=== PATIENT | female | born 1985 | race Two or more races ===

== ENCOUNTER 2020-11-20 05:33 | Emergency (ER) | payer SELFPAY ==
[~2020-11-20] VITALS: Ht 152.4 cm; Wt 81.8 kg
--- NOTE | 2020-11-20 06:34 | RAD ---
AP chest x-ray HISTORY: Shortness of breath. FINDINGS: Heart size normal. Mediastinal silhouette is normal. No pneumothorax, pulmonary opacities o r pleural effusions. Bones are unremarkable. IMPRESSION: No acute process evident. Electronically signed by: Luis Saini MD (11/20/2020 6:31 AM) [facility]erek
[2020-11-20] MEDS ORDERED: PROCHLORPERAZINE 10 MG/2 ML VIAL. IV ONE (06:45)
[2020-11-20] MEDS ORDERED: IV NORMAL SALINE 1000ML BAG 1,000 ML IV ONE (06:45)
[2020-11-20] MEDS ORDERED: DEXAMETHASONE SOD PHOS 20 MG/5 ML VIAL. IV ONE (06:45)
[2020-11-20 06:58] LABS: BASO # 0.1 x10^3/uL (0.0-0.2); BASO % 1 % (0-3); EOS # 0.2 x10^3/uL (0.0-0.7); EOS % 2 % (0-3); HEMATOCRIT 39.4 % (36.0-47.0); HEMOGLOBIN 13.3 g/dL (12.0-15.5); LYMPH # 2.3 x10^3/uL (1.0-4.8); LYMPH % 36 % (24-48); MEAN CORPUSCULAR HEMOGLOBIN 30 pg (25-35); MEAN CORPUSCULAR HGB CONC 34 g/dL (31-37); MEAN CORPUSCULAR VOLUME 88 fL (79-100); MONO # 0.4 x10^3/uL (0.0-1.1); MONO % 7 % (0-9); NEUT # 3.4 x10^3/uL (1.8-7.7); NEUT % 53 % (31-73); PLATELET COUNT 266 x10^3/uL (140-400); RED BLOOD COUNT 4.46 x10^6/uL (3.50-5.40); RED CELL DISTRIBUTION WIDTH 13.3 % (11.5-14.5); WHITE BLOOD COUNT 6.3 x10^3/uL (4.0-11.0)
--- NOTE | 2020-11-20 06:59 | PHYS DOC ---
Past Medical History Smoking Status: Never Smoker Alcohol Use: Occasionally General Adult EDM: Chief Complaint: SHORTNESS OF BREATH HPI: HPI: 35-year-old female past medical history of hypertension, hyperlipidemia and anxiety, presents the ED with complaints of gradual, intermittent headaches for the past 3 days reporting her anxiety is increased, she has not slept in the pa st 3 days. Reports her heart beat is going fast and she has had intermittent vomiting. Takes gabapentin and sertraline for anxiety, not on any anticoagulants. No history of migraine headaches or blunt head trauma. Was vaccinated for Covid 3 months ago. 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 Review of Systems: Review of Systems: Constitutional: Denies fever or chills. [] Eyes: Denies change in visual acuity. [] HENT: Denies nasal congestion or sore throat. [] Respiratory: Denies cough or shortness of breath. [] Cardiovascular: Denies chest pain or edema. [] GI: Denies abdominal pain, nausea, bloody stools or diarrhea. [] : Denies dysuria or hematuria Musculoskeletal: Denies back pain or joint pain. [] Integument: Denies rash or diaphoresis Neurologic: Denies neck stiffness focal weakness or sensory changes. [] Endocrine: Denies polyuria or polydipsia. [] Lymphatic: Denies swollen glands. [] Psychiatric: Denies depression or anxiety. [] Heart Score: C/O Chest Pain: No Risk Factors: Risk Factors: DM, Current or recent (<one month) smoker, HTN, HLP, family history of CAD, obesity. Risk Scores: Score 0 - 3: 2.5% MACE over next 6 weeks - Discharge Home Score 4 - 6: 20.3% MACE over next 6 weeks - Admit for Clinical Observation Score 7 - 10: 72.7% MACE over next 6 weeks - Early Invasive Strategies Current Medications: Current Medications Medications (Trade) Dose Ordered Sig/Aaron Start Time Stop Time Status Last Admin Dose Admin Dexamethasone Sodium Phosphate (Decadron) 10 mg 1X ONCE 11/20/20 06:45 11/20/20 06:46 DC Lorazepam (Ativan Inj) 1 mg 1X ONCE 11/20/20 06:45 11/20/20 06:46 DC Prochlorperazine Edisylate (Compazine) 10 mg 1X ONCE 11/20/20 06:45 11/20/20 06:46 DC Sodium Chloride 1,000 ml @ 1,000 mls/hr 1X ONCE 11/20/20 06:45 11/20/20 07:44 Allergies: Allergies: Allergies Coded Allergies Type Severity Reaction Last Updated Verified No Known Drug Allergies 10/31/15 No Physical Exam: PE: Constitutional: Photophobia present/squints with eye exam, non-toxic appearance. HENT: Normocephalic, atraumatic, no pharyngeal erythema Eyes: PERRLA, EOMI, conjunctiva normal, no discharge. Neck: Normal range of motion, supple, no nuchal rigidity or meningismus Cardiovascular: S1/2 present, regular rhythm, hr 97 on monitor Lungs & Thorax: Speaking in full sentences, bilateral equal chest rise, no tachypnea or increased work of breathing Abdomen: soft, no tenderness, Skin: Warm, dry, no erythema, no rash. [] Back: No tenderness, no CVA tenderness. [] Extremities: No tenderness, no cyanosis, Neurologic: CN2-12 [id number], steady gait, Alert and oriented X 3, normal motor function, normal sensory function, no focal deficits noted. [] Psychologic: Affect normal, judgement normal, mood-very anxious EKG: EKG: Sinus tachycardia 111 bpm, no axis deviation, S1Q3T3 present, QTC 510, no ST elevations or ST depressions Radiology/Procedures: Radiology/Procedures: IMAGING REPORT Signed PATIENT: KECIA CRUZ ACCOUNT: [id number] : 1985 LOCATION: ER AGE: 35 SEX: F EXAM STATUS: REG ER ORD. PHYSICIAN: DORIAN WILCOX DO REASON: headache PROCEDURE: CT HEAD WO CONTRAST EXAMINATION: CT HEAD/BRAIN WO CLINICAL HISTORY: Headache TECHNIQUE: Serial axial images without IV contrast were obtained from the vertex to the foramen magnum. CT Dose Reduction Employed: One or more of the following individualized dose reduction techniques were utilized for this examination: 1. Automated exposure control 2. Adjustment of the mA and/or kV according to patient size 3. Use of iterative reconstruction technique. COMPARISON: None FINDINGS: Acute Change: No evidence of an acute infarct or other acute parenchymal process. Hemorrhage: No evidence of acute intracranial hemorrhage. Mass Lesion/Mass Effect: No evidence of intracranial mass or extraaxial fluid collection. No significant mass effect. Parenchyma: No significant volume loss. Parenchyma otherwise within normal limits for age. Ventricles: Ventricles within normal limits for age. Paranasal Sinuses and Skull Base: Visualized paranasal sinuses clear. Visualized skull base and soft tissues unremarkable. IMPRESSION: No evidence of acute intracranial abnormality. Electronically signed by: Jak Samayoa DO (11/20/2020 8:17 AM) [id number] DICTATED and SIGNED BY: JAK SAMAYOA DO DATE: 11/20/20 [id number] IMAGING REPORT Signed PATIENT: KECIA CRUZ ACCOUNT: [id number] : 1985 LOCATION: ER AGE: 35 SEX: F EXAM STATUS: REG ER ORD. PHYSICIAN: DORIAN WILCOX DO REASON: soa PROCEDURE: CHEST AP ONLY AP chest x-ray HISTORY: Shortness of breath. FINDINGS: Heart size normal. Mediastinal silhouette is normal. No pneumothorax, pulmonary opacities or pleural effusions. Bones are unremarkable. IMPRESSION: No acute process evident. Electronically signed by: Eladio Saini MD (11/20/2020 6:31 AM) [facility] DICTATED and SIGNED BY: ELADIO SAINI MD DATE: 11/20/20 [id number] IMAGING REPORT Signed PATIENT: KECIA CRUZ ACCOUNT: [id number] : 1985 LOCATION: ER AGE: 35 SEX: F EXAM STATUS: REG ER ORD. PHYSICIAN: DORIAN WILCOX DO REASON: palpitaitons, r/o pe PROCEDURE: CT ANGIOGRAPHY CHEST PQRS Compliance Statement: One or more of the following individualized dose reduction techniques were utilized for this examination: 1. Automated exposure control 2. Adjustment of the mA and/or kV according to patient size 3. Use of iterative reconstruction technique Exam performed: CT pulmonary angiogram of the chest with contrast. Date: 11/20/2020. Comparison:Single view chest from earlier today Indication: Palpitation Technique: Contiguous helical acquisitions are obtained through the chest during intravenous administration of [ 100 ] cc of [ Omnipaque 3 ] . [Sagittal and coronal reformatted images and ] MIP images were obtained and reviewed Findings: Diagnostic quality: Adequate.. Pulmonary emboli: None seen Right heart strain: None Pulmonary arteries: Normal in caliber Heart/Systemic Vasculature: Normal Mediastinum: Normal Lungs: Clear Neck/Axilla/Body Wall: Normal Upper Abdomen: Unremarkable Bones: Normal Miscellaneous: None Impression: 1. Study is negative for pulmonary embolism. No additional abnormality seen. Electronically signed by: Pamela Gunn MD (11/20/2020 10:35 AM) [id number] DICTATED and SIGNED BY: PAMELA GUNN MD DATE: 11/20/20 [id number] Course & Med Decision Making: Course & Med Decision Making Pertinent Labs and Imaging studies reviewed. (See chart for details) Patient presented to the ED with multiple complaints including a gradual onset, intermittent headache for the past 3 days with associated anxiety, shortness of breath, palpitations and decreased sleep. Headache and anxiety improved with migraine cocktail and Ativan. I do suspect patient symptoms are more likely related to anxiety and stress >> life-threatening etiologies of headache. Heada georgette is atraumatic and intermittent. Patient is well-appearing with normal neurologic exam. Will discharge home with strict ED return precautions were given for head injury, severe headache, nausea or vomiting, neurologic deficits or suicidal homicidal ideations. Encouraged urgent outpatient follow-up with PMD and psychiatry. Life-threatening processes were considered but are low suspicion at this time, given history, physical exam and ED workup. Pt was educated on all prescription medications and adverse effects. All patient's questions were answered and pt was stable at time of discharge. Life/limb-threatening differential includes but is not limited to, end organ damage/sepsis, trauma/abuse/neglect, neurologic deficit, alcohol/drug ingestion, toxidrome, suicidal/homicidal ideations plans or attempts, psychosis or mental illness resulting in self neglect and inability to care for self. I have spoken with the patient and/or caregivers. I explained the patient's condition, diagnoses and treatment plan based on the information available to me at this time. I have answered the patient and/or caregiver's questions and addressed any concerns. The patient and/or caregivers have a good understanding of patient's diagnosis, condition and treatment plan as can be expected at this point. Vital signs have been stable. Patient's condition is stable and appropriate for discharge from the emergency department. Patient will pursue further outpatient evaluation with primary care physician or other designated or consulting physician as outlined in the discharge instructions. The patient and/or caregivers are agreeable to this plan of care and follow-up instructions have been explained in detail. The patient and/or caregivers have received these instructions in written form and have expressed an understanding of the discharge instructions. The patient and/or caregivers are aware that any significant change of condition or worsening of symptoms should prompt immediate return to this or the closest emergency department or call to 911. Dragsteffany Disclaimer: Dragon Disclaimer: This electronic medical record was generated, in whole or in part, using a voice recognition dictation system. Departure Departure Impression: Primary Impression: Headache Additional Impressions: Anxiety Palpitations Disposition: HOME / SELF CARE / HOMELESS Condition: STABLE Referrals: NO PCP (PCP) Lisette un seguimiento con avendano mdico de atencin primaria en 24 a 48 horas O SEGUIMIENTO CON MEDICINA FAMILIAR: [address] [facility] [place] [address] Telfono: Patient Instructions: Anxiety and Panic Attacks, General Headache Without Cause, Palpitations Additional Instructions: SEGUIMIENTO CON PSIQUIATRA: PARA EL TRATAMIENTO DEFINITIVO de la ansiedad Dr. Ed Har[facility] [address] [place], [place] [address] Telfono: DORIAN WILCOX DO Nov 20, 2020 06:59
[2020-11-20 07:07] LABS: CALCIUM 9.3 mg/dL (8.5-10.1); CREATININE 0.7 mg/dL (0.6-1.0); GFR 95.2
[2020-11-20 07:15] LABS: ALBUMIN 4.2 g/dL (3.4-5.0); ALBUMIN/GLOBULIN RATIO 1.1 (1.0-1.7); TOTAL BILIRUBIN 0.4 mg/dL (0.2-1.0); TOTAL PROTEIN 8.1 g/dL (6.4-8.2)
[2020-11-20 07:33] LABS: PREG TEST PT QUAL NEGATIVE (NEG)
--- NOTE | 2020-11-20 08:19 | RAD ---
EXAMINATION: CT HEAD/BRAIN WO CLINICAL HISTORY: Headache TECHNIQUE: Serial axial images without IV contrast were obtained from the vertex to the foramen magnu m. CT Dose Reduction Employed: One or more of the following individualized dose reduction techniques wer e utilized for this examination: 1. Automated exposure control 2. Adjustment of the mA and/or kV ac cording to patient size 3. Use of iterative reconstruction technique. COMPARISON: None FINDINGS: Acute Change: No evidence of an acute infarct or other acute parenchymal process. Hemorrhage: No evidence of acute intracranial hemorrhage. Mass Lesion/Mass Effect: No evidence of intracranial mass or extraaxial fluid collection. No signific ant mass effect. Parenchyma: No significant volume loss. Parenchyma otherwise within normal limits for age. Ventricles: Ventricles within normal limits for age. Paranasal Sinuses and Skull Base: Visualized paranasal sinuses clear. Visualized skull base and soft tissues unremarkable. IMPRESSION: No evidence of acute intracranial abnormality. Electronically signed by: Jak Coronado DO (11/20/2020 8:17 AM) [id number]
[2020-11-20] MEDS ORDERED: diphenhydrAMINE 50 MG/ML VIAL IVP ONE (09:30)
[2020-11-20] MEDS ORDERED: IOHEXOL 350 MG/ML 100 ML VIAL. IV ONE (09:30)
[2020-11-20] MEDS ORDERED: CONTRAST GIVEN. MC PRN (09:30)
--- NOTE | 2020-11-20 10:37 | RAD ---
PQRS Compliance Statement: One or more of the following individualized dose reduction techniques were utilized for this examinat ion: 1. Automated exposure control 2. Adjustment of the mA and/or kV according to patient size 3. Use of iterative reconstruction technique Exam performed: CT pulmonary angiogram of the chest with contrast. Date: 11/20/2020. Comparison:Single view chest from earlier today Indication: Palpitation Technique: Contiguous helical acquisitions are obtained through the chest during intravenous administ ration of [ 100 ] cc of [ Omnipaque 3 ] . [Sagittal and coronal reformatted images and ] MIP nataly ges were obtained and reviewed Findings: Diagnostic quality: Adequate.. Pulmonary emboli: None seen Right heart strain: None Pulmonary arteries: Normal in caliber Heart/Systemic Vasculature: Normal Mediastinum: Normal Lungs: Clear Neck/Axilla/Body Wall: Normal Upper Abdomen: Unremarkable Bones: Normal Miscellaneous: None Impression: 1. Study is negative for pulmonary embolism. No additional abnormality seen. Electronically signed by: Pamela Gunn MD (11/20/2020 10:35 AM) [id number]
[2020-11-20] MEDS ORDERED: METOCLOPRAMIDE HCL 10 MG/2 ML VIAL. IVP ONE (13:45)
[2020-11-20] MEDS ORDERED: KETOROLAC 15 MG/ML VIAL. IVP ONE (13:45)
--- NOTE | 2020-11-20 14:11 | EKG ---
[facility] [address] [place] [address] Test Date: 2020-11-20 Test Time: 07:50:43 Pat Name: KECIA CRUZ Department: Room: Gender: F Clinical Aide: : 1985 Requested By: DORIAN WILCOX Order Number: [id number] Reading MD: Measurements Intervals [place] Rate: 111 P: -90 IL: 134 QRS: 26 QRSD: 82 T: 11 QT: 372 QTc: 510 Interpretive Statements SINUS TACHYCARDIA NON SPECIFIC T ABNORMALITY BORDERLINE ECG RI6.02 No previous ECG available for comparison
[2020-11-20 14:26] VITALS: BP 164/86
== END 2020-11-20 14:26 | disposition home or self-care (01) ==
LOC: ER 05:33
DX: R51.9 Headache, unspecified (principal); F41.9 Anxiety disorder, unspecified; R00.2 Palpitations; I10 Essential (primary) hypertension; E78.5 Hyperlipidemia, unspecified
CPT/HCPCS: 36415; 70450; 71045; 71275; 80053; 81025; 83735; 84484; 84703; 85025; 93005; 96361; 96374; 96375; 99285; J0780; J1100; J1200; J1885; J2060; J2765; J7030; Q9967

== ENCOUNTER 2021-06-22 05:56 | Emergency (ER) | payer SELFPAY ==
[~2021-06-22] VITALS: Ht 154.9 cm; Wt 65.7 kg
[2021-06-22] MEDS ORDERED: IOHEXOL 300 MG/ML 100ML VIAL. IV ONE (06:30)
[2021-06-22] MEDS ORDERED: MORPHINE SULFATE 4 MG/ML INJ. IVP ONE (06:30)
[2021-06-22] MEDS ORDERED: CONTRAST GIVEN. MC PRN (06:30)
[2021-06-22] MEDS ORDERED: ONDANSETRON PF 4 MG/2 ML VIAL. IVP ONE (06:30)
[2021-06-22] MEDS ORDERED: IV NORMAL SALINE 1000ML BAG 1,000 ML IV ONE (06:30)
[2021-06-22 06:39] LABS: BASO # 0.1 x10^3/uL (0.0-0.2); BASO % 1 % (0-3); EOS # 0.3 x10^3/uL (0.0-0.7); EOS % 3 % (0-3); HEMATOCRIT 36.1 % (36.0-47.0); HEMOGLOBIN 11.9 g/dL (12.0-15.5); LYMPH % 22 % (24-48); MEAN CORPUSCULAR HEMOGLOBIN 29 pg (25-35); MEAN CORPUSCULAR HGB CONC 33 g/dL (31-37); MEAN CORPUSCULAR VOLUME 90 fL (79-100); MONO # 0.7 x10^3/uL (0.0-1.1); MONO % 8 % (0-9); NEUT # 6.1 x10^3/uL (1.8-7.7); NEUT % 67 % (31-73); PLATELET COUNT 268 x10^3/uL (140-400); RED BLOOD COUNT 4.03 x10^6/uL (3.50-5.40); WHITE BLOOD COUNT 9.1 x10^3/uL (4.0-11.0)
--- NOTE | 2021-06-22 06:41 | PHYS DOC ---
Past Medical History Additional Past Medical Histor: NOT MEDICATED FOR HTN Past Surgical History: No Surgical History Additional Past Surgical Histo: C SECT Smoking Status: Never Smoker Alcohol Use: None Adult General Chief Complaint Chief Complaint: BACK INJURY HPI HPI Patient is a 36 year old female who presents with generalized abdominal pain that started last night. This is crampy in nature. She also has some discomfort with urination and an increase in urinary frequency. No vomiting. It is unclear whether she has had a fever at home. Review of Systems Review of Systems Constitutional: Potential fever, positive for chills Eyes: Denies change in visual acuity or eye pain HENT: Denies sore throat Respiratory: Denies shortness of breath Cardiovascular: Denies chest pain GI: Reports abd pain : Reports dysuria Musculoskeletal: Denies back or extremity injury Integument: Denies rash or skin lesions Neurologic: Denies headache, focal weakness or sensory changes All other systems were reviewed and found to be within normal limits, except as documented in this note. Current Medications Current Medications Current Medications Medications (Trade) Dose Ordered Sig/Aaron Start Time Stop Time Status Last Admin Dose Admin Info (CONTRAST GIVEN -- Rx MONITORING) 1 each PRN DAILY PRN 06/22/21 06:30 06/24/21 06:29 Iohexol (Omnipaque 300 Mg/ml) 75 ml 1X ONCE 06/22/21 06:30 06/22/21 06:31 DC 06/22/21 06:30 75 ML Morphine Sulfate (Morphine Sulfate) 4 mg 1X ONCE 06/22/21 06:30 06/22/21 06:31 DC 06/22/21 06:30 4 MG Ondansetron HCl (Zofran) 4 mg 1X ONCE 06/22/21 06:30 06/22/21 06:31 DC 06/22/21 06:30 4 MG Sodium Chloride 1,000 ml @ 1,000 mls/hr 1X ONCE 06/22/21 06:30 06/22/21 07:29 DC 06/22/21 06:30 1,000 MLS/HR Allergies Allergies Allergies Coded Allergies Type Severity Reaction Last Updated Verified No Known Drug Allergies 06/22/21 No Physical Exam Physical Exam Constitutional: Well developed, well nourished, no acute distress, non-toxic appearance. HENT: Normocephalic, atraumatic, bilateral external ears normal, mucosa moist, nose normal. Eyes: EOMI, conjunctiva normal, no discharge. Neck: Normal range of motion, supple, no stridor, no meningeal signs. Cardiovascular: Regular rate and rhythm Lungs & Thorax: Bilateral breath sounds clear to auscultation Abdomen: Soft, generalized tenderness, no obvious masses Skin: Warm, dry, no erythema, no rash. Extremities: No tenderness, no cyanosis, no clubbing, ROM intact, no edema. Neurologic: Alert and oriented, normal motor function, normal sensory function, no focal deficits noted. Psychologic: Affect normal, judgement normal, mood normal. Current Patient Data Vital Signs Vital Signs Date Time Temp Pulse Resp B/P (MAP) Pulse Ox O2 Delivery O2 Flow Rate FiO2 06/22/21 08:26 84 18 110/61 (77) 98 Room Air 06/22/21 07:24 97.9 97.9 Lab Values Laboratory Tests Test 06/22/21 06:29 06/22/21 07:19 06/22/21 07:22 06/22/21 07:28 White Blood Count 9.1 x10^3/uL (4.0-11.0) Red Blood Count 4.03 x10^6/uL (3.50-5.40) Hemoglobin 11.9 g/dL (12.0-15.5) L Hematocrit 36.1 % (36.0-47.0) Mean Corpuscular Volume 90 fL (79-100) Mean Corpuscular Hemoglobin 29 pg (25-35) Mean Corpuscular Hemoglobin Concent 33 g/dL (31-37) Red Cell Distribution Width 14.0 % (11.5-14.5) Platelet Count 268 x10^3/uL (140-400) Neutrophils (%) (Auto) 67 % (31-73) Lymphocytes (%) (Auto) 22 % (24-48) L Monocytes (%) (Auto) 8 % (0-9) Eosinophils (%) (Auto) 3 % (0-3) Basophils (%) (Auto) 1 % (0-3) Neutrophils # (Auto) 6.1 x10^3/uL (1.8-7.7) Lymphocytes # (Auto) 2.0 x10^3/uL (1.0-4.8) Monocytes # (Auto) 0.7 x10^3/uL (0.0-1.1) Eosinophils # (Auto) 0.3 x10^3/uL (0.0-0.7) Basophils # (Auto) 0.1 x10^3/uL (0.0-0.2) Sodium Level 136 mmol/L (136-145) Potassium Level 3.3 mmol/L (3.5-5.1) L Chloride Level 100 mmol/L (98-107) Carbon Dioxide Level 27 mmol/L (21-32) Anion Gap 9 (6-14) Blood Urea Nitrogen 5 mg/dL (7-20) L Creatinine 0.8 mg/dL (0.6-1.0) Estimated GFR (Cockcroft-Gault) 81.2 BUN/Creatinine Ratio 6 (6-20) Glucose Level 114 mg/dL (70-99) H Calcium Level 9.1 mg/dL (8.5-10.1) Total Bilirubin 0.3 mg/dL (0.2-1.0) Aspartate Amino Transferase (AST) 99 U/L (15-37) H Alanine Aminotransferase (ALT) 167 U/L (14-59) H Alkaline Phosphatase 62 U/L (46-116) Total Protein 7.7 g/dL (6.4-8.2) Albumin 4.0 g/dL (3.4-5.0) Albumin/Globulin Ratio 1.1 (1.0-1.7) Lipase 95 U/L (73-393) Urine Collection Type Unknown Urine Color (Auto) Colorless Urine Turbidity Clear Urine pH (Auto) 5.5 (<5.0-8.0) Urine Specific [employer] 1.004 (1.000-1.030) Urine Protein (Auto) Negative mg/dL (Negative) Urine Glucose (Auto)(UA) Negative mg/dL (Negative) Urine Ketones (Auto) Negative mg/dL (Negative) Urine Blood (Auto) Negative (Negative) Urine Nitrite Negative (Negative) Urine Bilirubin (Auto) Negative (Negative) Urine Urobilinogen (Auto) Normal mg/dL (Normal) Urine Leukocyte Esterase (Auto) Negative (Negative) Urine RBC 0 /HPF (0-2) Urine WBC 0 /HPF (0-4) Urine Squamous Epithelial Cells Few /LPF Urine Bacteria 0 /HPF (0-FEW) Lactic Acid Level 0.7 mmol/L (0.4-2.0) POC Urine HCG, Qualitative Hcg negative (Negative) Test 06/22/21 07:29 Influenza Type A Antigen Negative (NEGATIVE) Influenza Type B Antigen Negative (NEGATIVE) SARS-CoV-2 Antigen (Rapid) Negative (NEGATIVE) Laboratory Tests 06/22/21 06:29 Laboratory Tests 06/22/21 06:29 EKG EKG [] Radiology/Procedures Radiology/Procedures [] Impressions: PATIENT: KECIA CRUZACCOUNT: [id number]#: [id number] : 1985 LOCATION: ER AGE: 36 SEX: F EXAM STATUS: REG ER ORD. PHYSICIAN: BOOM BERRIOS MD REASON: abd pain;OMNI 300, 75ML PROCEDURE: CT ABD PELV W/ IV CONTRST ONLY INDICATION: Reason: abd pain;OMNI 300, 75ML / Spl. Instructions: / History: COMPARISON: None. TECHNIQUE: Axial CT images were obtained through the abdomen and pelvis with intravenous contrast. One or more of the following individualized dose reduction techniques were utilized for this examination: 1. Automated exposure control; 2. Adjustment of the mA and/or kV according to patient size; 3. Use of iterative reconstruction technique. FINDINGS: Vascular: No abdominal aortic aneurysm. Hepatobiliary: Liver is low density which can be seen with fatty infiltration. Pancreas: No peripancreatic edema. Spleen: Spleen unremarkable. Renal/Bladder: No hydronephrosis. Gastrointestinal: 37 mm suspected low-density right ovarian lesion. High density free fluid is seen within the pelvis. Small soft tissue density adjacent to the spleen most commonly from splenule. Small amount of high density fluid tracking along the paracolic gutters. No periappendiceal inflammatory changes. No dilated loops of bowel to suggest obstruction. Suspected low-density lesion at the lower uterine segment to cervical region measuring approximately 14 mm. Small fat-containing umbilical hernia. There are some degenerative changes of the spine. IMPRESSION: * Small amount of hemoperitoneum most prominent within the pelvis. There is also some blood seen tracking along the paracolic gutters. * Low-density lesion at the right adnexa. Could be secondary to a right ovarian lesion and would consider pelvic ultrasound to further assess whether this is solid or cystic in nature. There is also a region of low density at the lower uterine segment to cervical region which can be further assessed at the time as well. Electronically signed by: Boom Swain MD (06/22/2021 8:35 AM) [id number] DICTATED and SIGNED BY: BOOM SWAIN MD DATE: 06/22/21820 PATIENT: KECIA CRUZ ACCOUNT: [id number] : 1985 LOCATION: ER AGE: 36 SEX: F EXAM STATUS: REG ER ORD. PHYSICIAN: BOOM BERRIOS MD REASON: right adnexal lesion PROCEDURE: PELVIS ULTRASOUND US PELVIS COMPLETE History: Reason: right adnexal lesion / Spl. Instructions: / History: Comparison: CT June 22, 2021 Technique: Grayscale and color Doppler imaging of the pelvis was performed using transabdominal technique. Findings: The uterus measures 9.8 x 5.2 x 4.4 cm. Nabothian cyst corresponding with CT finding. The endometrial stripe measures 5 mm. Right ovary measures 5.6 x 4.2 x 4.1 cm. Right ovarian complicated cystic lesion measures 4.1 x 2.7 cm. Left ovary measures 3.2 x 2.1 x 1.7 cm. Normal Doppler flow to the ovaries. Small complicated pelvic free fluid. IMPRESSION: 1. Right ovarian complicated cystic lesion with small hemoperitoneum, may repr esent recently ruptured hemorrhagic cyst. Recommend 4-6 week follow-up ultrasound. Electronically signed by: Sean Jimenez DO (06/22/2021 9:56 AM) [id number] DICTATED and SIGNED BY: SEAN JIMENEZ DO DATE: 06/22/21 0953 Course & Med Decision Making Course & Med Decision Making Pertinent Labs and Imaging studies reviewed. (See chart for details) [] Is a 36-year-old female who presents with abdominal pain that is generalized in nature. On work-up she has what appears to be a ruptured ovarian cyst on the right side with a small amount of hemoperitoneum. We will give the patient prescriptions for Zofran, Toradol and Narka to be used sparingly over the next few days. If symptoms persist she should follow-up with her primary care physician, return to the emergency department if symptoms become worse or other concerns arise, she is stable for discharge at this time. Dragon Disclaimer Dragon Disclaimer This electronic medical record was generated, in whole or in part, using a voice recognition dictation system. Departure Departure Impression: Primary Impression: Ovarian cyst rupture Disposition: HOME / SELF CARE / HOMELESS Condition: STABLE Referrals: NO PCP (PCP) Patient Instructions: Ovarian Cyst, [id number] Scripts Ondansetron Hcl (ONDANSETRON HCL) 4 Mg Tablet 4 MG PO TID PRN for NAUSEA/VOMITING, #10 TAB Prov: BOOM BERRIOS MD 06/22/21 Ketorolac Tromethamine (KETOROLAC TROMETHAMINE) 10 Mg Tablet 1 TAB PO TID PRN for PAIN, #10 TAB Prov: BOOM BERRIOS MD 06/22/21 Hydrocodone Bit/Acetaminophen (HYDROCODONE-APAP 5-325 ) 1 Tab Tablet 1 TAB PO PRN Q6HRS PRN for PAIN, #10 TAB 0 Refills Prov: BOOM BERRIOS MD 06/22/21 BOOM BERRIOS MD Jun 22, 2021 06:41
[2021-06-22 06:49] LABS: CALCIUM 9.1 mg/dL (8.5-10.1); CREATININE 0.8 mg/dL (0.6-1.0); GFR 81.2; POTASSIUM 3.3 mmol/L (3.5-5.1)
[2021-06-22 07:00] LABS: ALBUMIN/GLOBULIN RATIO 1.1 (1.0-1.7); TOTAL BILIRUBIN 0.3 mg/dL (0.2-1.0); TOTAL PROTEIN 7.7 g/dL (6.4-8.2)
[2021-06-22 08:10] LABS: INFLUENZA A PATIENT NEGATIVE (NEGATIVE); INFLUENZA B PATIENT NEGATIVE (NEGATIVE)
[2021-06-22 08:13] LABS: BACTERIA,URINE 0 /HPF (0-FEW); RBC,URINE 0 /HPF (0-2); WBC,URINE 0 /HPF (0-4)
--- NOTE | 2021-06-22 08:38 | RAD ---
INDICATION: Reason: abd pain;OMNI 300, 75ML / Spl. Instructions: / History: COMPARISON: None. TECHNIQUE: Axial CT images were obtained through the abdomen and pelvis with intravenous contrast. One or more of the following individualized dose reduction techniques were utilized for this examinat ion: 1. Automated exposure control; 2. Adjustment of the mA and/or kV according to patient size; 3 . Use of iterative reconstruction technique. FINDINGS: Vascular: No abdominal aortic aneurysm. Hepatobiliary: Liver is low density which can be seen with fatty infiltration. Pancreas: No peripancreatic edema. Spleen: Spleen unremarkable. Renal/Bladder: No hydronephrosis. Gastrointestinal: 37 mm suspected low-density right ovarian lesion. High density free fluid is seen w ithin the pelvis. Small soft tissue density adjacent to the spleen most commonly from splenule. Small amount of high density fluid tracking along the paracolic gutters. No periappendiceal inflammatory c hanges. No dilated loops of bowel to suggest obstruction. Suspected low-density lesion at the lower u terine segment to cervical region measuring approximately 14 mm. Small fat-containing umbilical herni a. There are some degenerative changes of the spine. IMPRESSION: * Small amount of hemoperitoneum most prominent within the pelvis. There is also some blood seen tr acking along the paracolic gutters. * Low-density lesion at the right adnexa. Could be secondary to a right ovarian lesion and would con plastic joint maker pelvic ultrasound to further assess whether this is solid or cystic in nature. There is also a region of low density at the lower uterine segment to cervical region which can be further assessed a t the time as well. Electronically signed by: Armin Robles MD (06/22/2021 8:35 AM) [id number]
--- NOTE | 2021-06-22 09:58 | RAD ---
US PELVIS COMPLETE History: Reason: right adnexal lesion / Spl. Instructions: / History: Comparison: CT June 22, 2021 Technique: Grayscale and color Doppler imaging of the pelvis was performed using transabdominal techn ique. Findings: The uterus measures 9.8 x 5.2 x 4.4 cm. Nabothian cyst corresponding with CT finding. The endometri al stripe measures 5 mm. Right ovary measures 5.6 x 4.2 x 4.1 cm. Right ovarian complicated cystic lesion measures 4.1 x 2.7 c m. Left ovary measures 3.2 x 2.1 x 1.7 cm. Normal Doppler flow to the ovaries. Small complicated pelvic free fluid. IMPRESSION: 1. Right ovarian complicated cystic lesion with small hemoperitoneum, may represent recently rupture d hemorrhagic cyst. Recommend 4-6 week follow-up ultrasound. Electronically signed by: Sean Jimenez DO (06/22/2021 9:56 AM) [id number]
[2021-06-22] MEDS ORDERED: ONDA-84 PO (10:15)
[2021-06-22] MEDS ORDERED: HYDR-2761 PO (10:15)
[2021-06-22] MEDS ORDERED: KETO10TA PO (10:15)
[2021-06-22 10:26] VITALS: BP 128/68
== END 2021-06-22 10:35 | disposition home or self-care (01) ==
LOC: ER 05:56
DX: N83.201 Unspecified ovarian cyst, right side (principal); K42.9 Umbilical hernia without obstruction or gangrene; Z20.822 Contact with and (suspected) exposure to COVID-19
CPT/HCPCS: 36415; 74177; 76856; 80053; 81001; 81025; 83605; 83690; 85025; 87428; 96361; 96374; 96375; 99285; J2270; J2405; J7030; Q9967